=== PATIENT | female | born 1985 | race Caucasian/White ===

== ENCOUNTER → 2021-07-19 09:27 | Outpatient (BNVA) | payer OTHER, SELFPAY | PROVIDERS: PCP Physician Assistant Medical; Visit Provider Nurse Practitioner Family ==

== ENCOUNTER → 2021-10-16 08:53 | Outpatient (BNVA) | payer OTHER, SELFPAY | PROVIDERS: PCP Physician Assistant Medical; Visit Provider Nurse Practitioner Family | DX: F09 Unspecified mental disorder due to known physiological condition (principal) ==

== ENCOUNTER 2021-11-01 18:41 | Outpatient (REF) | payer OTHER, SELFPAY ==
--- NOTE | ~2021-11-01 | MR_ITS ---
EXAMINATION: MRI BRAIN WITHOUT CONTRAST CLINICAL INFORMATION: 36-year-old with self-reported brain fog of 1.5 years' duration. Abnormal reflexes. COMPARISON: None TECHNIQUE: Multiplanar multisequence MR imaging of the brain was done without IV contrast. FINDINGS: BRAIN VOLUME: Within normal limits. STRUCTURAL: No malformations. BRAIN AND MENINGES: DWI sequence demonstrates no restricted diffusion. Specifically, there is no evidence for acute or subacute cerebral ischemia. The brain is normal in morphology and signal intensity. Gradient refocused imaging demonstrates no evidence for hemorrhage, hemosiderin staining or abnormal mineral deposition. No extra-axial fluid collections, significant space-occupying process or mass effect are identified. Davila-white matter interface is preserved. VENTRICLES AND SUBARACHNOID SPACES: The ventricular system and subarachnoid spaces are within normal limits. There is no hydrocephalus. ORBITAL STRUCTURES: The visualized orbital structures are grossly unremarkable within the limitations of the study. Partially obscured by artifacts. VASCULAR: Signal voids are noted in the visualized major intracranial vessels. OSSEOUS STRUCTURES, SINUSES/MASTOIDS, EXTRACRANIAL SOFT TISSUES: There are multiple retention cysts in the maxillary sinuses bilaterally. Minor mucosal thickening in the ethmoid complex. Bone marrow signal intensity appears somewhat hypointense throughout the diploic space of the calvarium but is otherwise normal. Visualized extracranial soft tissue structures are unremarkable. MR/MR head/brain wo con IMPRESSION: 1. Unremarkable noncontrast MRI of the brain. No acute intracranial process. 2. Diffusely T1 hypointense marrow signal throughout the calvarial diploic space with normal marrow signal along the skull base and upper cervical spine, the significance of which is uncertain but could be a normal variant.
--- NOTE | ~2021-11-01 | MR_ITS ---
EXAMINATION: MR CERVICAL SPINE WITHOUT CONTRAST CLINICAL INFORMATION: 36-year-old with abnormal reflexes. COMPARISON: None TECHNIQUE: MRI of the cervical spine was obtained using routine sequences without contrast. FINDINGS: ALIGNMENT: The cervical spine is anatomically aligned. No spondylolisthesis or retrolisthesis. CRANIOCERVICAL JUNCTION/C1-C2 ARTICULATIONS: Intact and aligned. VISUALIZED INTRACRANIAL STRUCTURES: Within normal limits. 1.3 cm probable retention cyst in the right maxillary sinus. VERTEBRAL BODIES: Normal height. DISC SPACES AND ENDPLATES: The intervertebral disc space heights are well-maintained. No significant spondylosis. Minor disc desiccation at C2-C3, C5-C6 and C6-C7. Endplates appear intact. BONE MARROW: No significant marrow-replacing process or bone marrow edema. C2-C3: No disc herniation and no significant DJD, canal or neural foraminal stenosis. C3-C4: No disc herniation and no significant DJD, canal or neural foraminal stenosis. C4-C5: No disc herniation and no significant DJD, canal or neural foraminal stenosis. C5-C6: Tiny right paramedian disc protrusion with minimal indentation of the ventral thecal sac on the right without cord impingement or foraminal encroachment. Minor uncinate process spurring suspected on the right. No significant canal stenosis. Very slight narrowing of the right neural foramen without neural impingement. C6-C7: Tiny left subarticular disc protrusion without neural impingement. Minor uncinate process and facet spurring on the left noted with mild left-sided foraminal narrowing without neural impingement. No canal stenosis. C7-T1: No disc herniation, facet arthrosis, canal or neural foraminal stenosis. T1-T2: No disc herniation, DJD, canal or neural foraminal stenosis. SPINAL CORD: The cervical and visualized upper thoracic spinal cord is normal in morphology, caliber and signal intensity throughout. EXTRACRANIAL SOFT TISSUES: Grossly within normal limits within the limitations of the exam. MR/MR cervical spine wo con IMPRESSION: 1. Tiny right subarticular and left subarticular disc protrusions at C5-C6 and C6-C7 respectively without neural impingement or canal stenosis. 2. Minor bony productive changes at C5-C6 and C6-C7 with slight right-sided neural foraminal narrowing at C5-C6 and slight left-sided neural foraminal narrowing at C6-C7 without neural impingement.
== END 2021-11-01 18:42 | disposition home or self-care (01) ==
LOC: HO.MRI 18:41
PROVIDERS: Visit Provider Nurse Practitioner Family
DX: M54.2 Cervicalgia (principal); R29.2 Abnormal reflex; F09 Unspecified mental disorder due to known physiological condition
CPT/HCPCS: 70551; 72141

== ENCOUNTER 2022-03-14 18:48 | Outpatient (REF) | payer OTHER, SELFPAY ==
--- NOTE | ~2022-03-14 | MR_ITS ---
EXAMINATION: MR LUMBAR SPINE WITHOUT CONTRAST CLINICAL INFORMATION: Abnormal reflex. COMPARISON: No relevant prior imaging. TECHNIQUE: MRI of the lumbar spine was obtained using routine sequences without contrast. FINDINGS: There is transitional spinal anatomy at the lumbosacral junction with partial lumbarization of S1. There is a well-formed intervertebral disc at S1-S2. There is a pseudoarticulation between the right S1 and S2 transverse processes. Alignment is normal. Vertebral heights are preserved. No acute bone marrow signal changes. Intervertebral disc height and signal intensity is maintained at all levels. Annular contours are normal and there is no canal or neuroforaminal compromise. No mass effect on the traversing or foraminal nerve roots. The tip of the conus medullaris is located at L1-L2. No mass effect on the conus. Visualized distal cord signal intensity is normal. Limited visualization of the retroperitoneal anatomy reveals no abnormal finding. Psoas and paraspinal muscle groups are symmetric. MR/MR lumbar spine wo con IMPRESSION: There is transitional spinal anatomy at the lumbosacral junction with lumbarization of the S1 vertebral segment. There is a pseudoarticulation between the right S1 and S2 transverse processes. Otherwise normal lumbar spine MRI.
== END 2022-03-14 18:49 | disposition home or self-care (01) ==
LOC: HO.MRI 18:48
PROVIDERS: Visit Provider Nurse Practitioner Family
DX: M54.50 Low back pain, unspecified (principal); R29.2 Abnormal reflex
CPT/HCPCS: 72148

== ENCOUNTER 2022-03-21 12:37 | Outpatient (REF) | payer OTHER, SELFPAY ==
--- NOTE | 2022-03-21 12:41 | EEG_ITS ---
This is a 16-channel EEG with an EKG lead. The patient is reported awake during the tracing. Background EEG rhythm is 8 to 10 hertz 5 to 20 microvolt posteriorly, lower amplitude fast anteriorly. Photic stimulation does not produce any significant driving. Hyperventilation is not performed. Cardiac lead does not reveal any significant abnormality. No sharp wave spikes or paroxysmal tendencies noted. IMPRESSION: Unremarkable EEG. MD SAROJ Larson/MITCHEL / [phone]
== END 2022-03-21 12:38 | disposition home or self-care (01) ==
LOC: HO.NEURO 12:37
PROVIDERS: Visit Provider Nurse Practitioner Family
DX: R41.82 Altered mental status, unspecified (principal)
CPT/HCPCS: 95816

== ENCOUNTER → 2022-09-11 08:20 | Outpatient (BNVA) | payer OTHER, SELFPAY | PROVIDERS: PCP Internal Medicine; Visit Provider Nurse Practitioner Family | DX: M54.50 Low back pain, unspecified (principal); R29.2 Abnormal reflex ==

== ENCOUNTER 2023-03-13 09:19 | Outpatient (AMB) | payer OTHER, SELFPAY ==
--- NOTE | 2023-03-13 09:42 | A.OFFVIS_ITS ---
Intake Vital Signs 03/13/23 09:49 Height 5 ft 7 in Weight 175 lb 8 oz BMI 27.5 BP 110/82 Blood Pressure Location Rt brachial Position Sitting Pulse 84 Pulse Source Pulse Oximeter Pulse Oximetry (%) 98 Oxygen Delivery Method Room Air Intake Visit Reasons: 6m Follow up appt/confirmed Intake Note: Patient presents for 6 month follow up. patient states everything's the same nothings changed. Allergies No Known Allergies Allergy (Verified 03/13/23 09:53) Medication List - Last Reconciled 03/13/23 by VANESSA Cee escitalopram oxalate 10 mg PO DAILY lorazepam mg PO HPI HPI Comments History of Present Illness Details 38-yr-old female presents for f/u visit. Pt did undergo left shoulder surgery after her last viist, she notes she had significant increased pain, which eventually resolved after completing PT. Episodes of spacing out still occur sporadically. She is concerned about previous MRI head findings- Diffusely T1 hypointense marrow signal throughout the calvarial diploic space with normal marrow signal along the skull base and upper cervical spine. She has been having some left neck and lower back discomfort- non-radiating. Thinks she may have slept wrong. [facility] Surgical History (Updated 03/13/23 @ 09:54 by SUSAN Hart) H/O shoulder surgery History of nasal surgery History of tonsillectomy Family History Father Stroke Mother Cancer Dysplastic nevus Social History Alcohol intake: current Alcohol intake frequency: holidays/special occasions only Alcohol type: beer and hard liquor Patient Tobacco Use Status: Never used Tobacco Review of Systems Const All systems reviewed & are unremarkable except as noted in HPI and below Physical Exam Vital Signs: Last Vital Signs Pulse 84 03/13/23 09:49 BP 110/82 03/13/23 09:49 Pulse Ox 98 03/13/23 09:49 Oxygen Delivery Method Room Air 03/13/23 09:49 BMI result Body Mass Index 27.5 Const General: cooperative and no acute distress Orientation/consciousness: patient oriented x3 HEENT Head: Yes normocephalic Resp Effort & Inspection: normal respiratory effort and able to speak in complete sentences Neuro Other: Left paraspinal posterior cervical tightness and tenderness Left lower back paraspinal tightness General: patient oriented x3, gait normal and CN's II-XI intact bilaterally Cognition (Neuro): normal cognition Motor exam (neuro): 5/5 motor strength present throughout Deep tendon reflexes (DTR's): Right triceps reflex intensity grade: 2+, Left triceps reflex intensity grade: 2+, Rt Biceps (C5, C6): 2+, Left biceps reflex intensity grade: 3+, Right brachioradialis reflex intensity grade: 2+, Left brachioradialis reflex intensity grade: 2+, Right patellar reflex intensity grade: 2+ and Left patellar reflex intensity grade: 3+ Psych Appearance: grossly normal Mental Status: mental status grossly normal Speech and movement: Normal speech and movement present Affect: normal affect Attitude: cooperative Thought process: Normal thought process present Thought content: Normal thought content present Insight: Good insight present (Psych) Judgement: Good judgement present (Psych) Assessment & Plan Assessment & Plan (1) Abnormal MRI of head: Code(s): R93.0 - Abnormal findings on diagnostic imaging of skull and head, not elsewhere classified (2) Altered mental status: Code(s): R41.82 - Altered mental status, unspecified (3) Cervicalgia: Comment: More left sided. She has a h/o LUE tingling/aching pain. Can easily dislocate left shoulder. Code(s): M54.2 - Cervicalgia (4) Hyperreflexia: Comment: asymmetric patellar reflex- Code(s): R29.2 - Abnormal reflex (5) Low back pain: Code(s): M54.50 - Low back pain, unspecified Plan Pt advised to undergo f/u brain MRI to assess for any interval changes in diffuse T1 hypointensity in calvarial diploic space. Monitor spacing out episodes. EEG- normal. Increase ROM, stretches, exercise. f/u in 6 months or sooner prn Orders: Orders MR head/brain wo con Today R29.2 - Abnormal reflex, R41.82 - Altered mental status, unspecified, R93.0 - Abnormal findings on diagnostic imaging of skull and head, not elsewhere classified Coding Level of Care Code Est Pt Level 4 (52297) Diagnoses Abnormal MRI of head R93.0 Altered mental status R41.82 Cervicalgia M54.2 Hyperreflexia R29.2 Low back pain M54.50
[2023-03-13 09:49] VITALS: BP 110/82; PULSE 84; O2SAT 98; BMI 27.5
== END 2023-03-13 10:20 | disposition home or self-care (01) ==
PROVIDERS: Visit Provider Nurse Practitioner Family
DX: R93.0 Abnormal findings on diagnostic imaging of skull and head, not elsewhere classified (principal); R41.82 Altered mental status, unspecified; M54.2 Cervicalgia; R29.2 Abnormal reflex; M54.50 Low back pain, unspecified
CPT/HCPCS: 99214

== ENCOUNTER → 2023-03-13 09:19 | Outpatient (BNVA) | payer OTHER, SELFPAY | PROVIDERS: Visit Provider Nurse Practitioner Family | DX: M54.50 Low back pain, unspecified (principal); R29.2 Abnormal reflex ==

== ENCOUNTER 2023-04-08 17:22 | Outpatient (REF) | payer OTHER, SELFPAY ==
--- NOTE | ~2023-04-08 | MR_ITS ---
EXAMINATION: MRI BRAIN WITHOUT CONTRAST CLINICAL INFORMATION: Abnormal reflex; F/U on diffusely T1 hypointense marrow signal throughout the calvarial diploic space. COMPARISON: MRI brain dated 11/01/2021. TECHNIQUE: Multiplanar multisequence MR imaging of the brain was done without IV contrast. FINDINGS: BRAIN AND MENINGES: There is no evidence for acute or subacute cerebral ischemia. The brain is normal in morphology and signal intensity. Gradient refocused imaging demonstrates no evidence for hemorrhage, hemosiderin staining or abnormal mineral deposition. No extra-axial fluid collection, space-occupying process or mass effect are identified. Davila-white matter interface is preserved. VENTRICLES AND SUBARACHNOID SPACES: The ventricular system and subarachnoid spaces are within normal limits. There is no hydrocephalus. ORBITAL STRUCTURES: The visualized orbital structures are grossly unremarkable. VASCULAR: Flow voids within the major intracranial vessels are preserved. OSSEOUS STRUCTURES, SINUSES/MASTOIDS, EXTRACRANIAL SOFT TISSUES: Paranasal sinuses are clear. Diffusely T1 hypointense marrow signal throughout the calvarial diploic space is unchanged compared with prior exam. Visualized extracranial soft tissue structures are unremarkable. MR/MR head/brain wo con IMPRESSION: - No acute intracranial process. - Diffusely T1 hypointense marrow signal throughout the calvarial diploic space is unchanged compared with prior exam. The significance of this finding is uncertain.
== END 2023-04-08 17:23 | disposition home or self-care (01) ==
LOC: HO.MRI 17:22
PROVIDERS: PCP Internal Medicine; Visit Provider Nurse Practitioner Family
DX: R29.2 Abnormal reflex (principal); R41.82 Altered mental status, unspecified; R93.0 Abnormal findings on diagnostic imaging of skull and head, not elsewhere classified
CPT/HCPCS: 70551

== ENCOUNTER 2023-09-12 09:20 | Outpatient (AMB) | payer OTHER, SELFPAY ==
[2023-09-12 09:24] VITALS: BP 102/74; PULSE 79; O2SAT 99; BMI 27.9
--- NOTE | 2023-09-12 09:24 | A.OFFVIS_ITS ---
Vital Signs 09/12/23 09:24 Height 5 ft 7 in Weight 178 lb BMI 27.9 BP 102/74 Blood Pressure Location Rt brachial Position Sitting Pulse 79 Pulse Source Pulse Oximeter Pulse Oximetry (%) 99 Oxygen Delivery Method Room Air Intake Visit Reasons: 6 mnts f/u appt- Confirmed Intake Note: Patient presents for 6 month follow up. Patient presents for brain fog which has gotten better since she saw provider. Allergies No Known Allergies Allergy (Verified 09/12/23 09:26) Medication List - Last Reconciled 09/12/23 by VANESSA Cee escitalopram oxalate 10 mg PO DAILY lorazepam mg PO HPI Comments Details: 38-yr-old female presents for f/u visit. Pt denies any significant interval medical changes. Pt reports she is feeling overall well. Denies interval spacing out episodes. Pt denies easy bruising, bleeding. 04/08/23, MR/MR head/brain wo con IMPRESSION: - No acute intracranial process. - Diffusely T1 hypointense marrow signal throughout the calvarial diploic space is unchanged compared with prior exam. The significance of this finding is uncertain. PFSH Surgical History H/O shoulder surgery History of nasal surgery History of tonsillectomy Family History Father Stroke Mother Cancer Dysplastic nevus Social History Alcohol intake: current Alcohol intake frequency: holidays/special occasions only Alcohol type: beer and hard liquor Patient Tobacco Use Status: Never used Tobacco Physical Exam Vital Signs: Last Vital Signs Pulse 79 09/12/23 09:24 BP 102/74 09/12/23 09:24 Pulse Ox 99 09/12/23 09:24 Oxygen Delivery Method Room Air 09/12/23 09:24 BMI result Body Mass Index 27.9 Const General: cooperative and no acute distress Orientation/consciousness: patient oriented x3 Resp Effort & Inspection: normal respiratory effort and able to speak in complete sentences Neuro General: patient oriented x3 Cranial nerves: Yes CN's II-XII intact bilaterally Cognition (Neuro): normal cognition Psych Appearance: grossly normal Mental Status: mental status grossly normal Speech and movement: Normal speech and movement present Affect: normal affect Attitude: cooperative Assessment & Plan Assessment & Plan (1) Abnormal MRI of head: Code(s): R93.0 - Abnormal findings on diagnostic imaging of skull and head, not elsewhere classified Category: Medical (2) Cognitive dysfunction: Comment: ? atypical migraine w/out WARD, ? epilepsy Code(s): F09 - Unspecified mental disorder due to known physiological condition Category: Medical (3) Cervicalgia: Comment: More left sided. She has a h/o LUE tingling/aching pain. Can easily dislocate left shoulder. Code(s): M54.2 - Cervicalgia Category: Medical Plan Reviewed brain MRI- No intevrla changes. Stable diffusely T1 hypointense marrow signal throughout the calvarial diploic space. Will check CBC w/ diff and labs. Monitor spacing out episodes. Previous EEG- normal. Continue ROM, stretches, exercise. f/u in 12 months or sooner prn. Orders: Orders Complete Blood Count Auto Diff 09/12/23 D75.9 - Disease of blood and blood- forming organs, unspecified, R93.0 - Abnormal findings on diagnostic imaging of skull and head, not elsewhere classified, F09 - Unspecified mental disorder due to known physiological condition, R29.2 - Abnormal reflex Calcium, Ionized 09/12/23 R93.0 - Abnormal findings on diagnostic imaging of skull and head, not elsewhere classified, F09 - Unspecified mental disorder due to known physiological condition, R29.2 - Abnormal reflex Comprehensive Met. Panel 09/12/23 R93.0 - Abnormal findings on diagnostic imaging of skull and head, not elsewhere classified, F09 - Unspecified mental disorder due to known physiological condition, R29.2 - Abnormal reflex Coding Level of Care Code Est Pt Level 3 (02153) Diagnoses Abnormal MRI of head R93.0 Cognitive dysfunction F09 Cervicalgia M54.2
== END 2023-09-12 10:04 | disposition home or self-care (01) ==
PROVIDERS: PCP Internal Medicine; Visit Provider Nurse Practitioner Family
DX: R93.0 Abnormal findings on diagnostic imaging of skull and head, not elsewhere classified (principal); R41.89 Other symptoms and signs involving cognitive functions and awareness; M54.2 Cervicalgia
CPT/HCPCS: 99213

== ENCOUNTER → 2023-09-12 09:20 | Outpatient (BNVA) | payer OTHER, SELFPAY | PROVIDERS: PCP Internal Medicine; Visit Provider Nurse Practitioner Family ==

== ENCOUNTER 2023-09-12 10:08 | Outpatient (REF) | payer OTHER, SELFPAY ==
[2023-09-12 14:27] LABS: MANUAL DIFF FLAG NO
[2023-09-12 14:31] LABS: Basophils Percent Auto 0.5 % (0-2); Eosinophils Absolute Auto 0.1 X10*3/uL (0.0-0.4); Eosinophils Percent Auto 1.4 % (0-4); Hematocrit 41.3 % (37.0-47.0); Imm Gran Abs Auto 0.02 X10*3/uL (0.00-0.03); Imm Gran Pct Auto 0.3 % (0.0-0.4); Lymphocytes Absolute Auto 2.2 X10*3/uL (1.2-4.9); Lymphocytes Percent Auto 32.9 % (20-40); Mean Corpuscular HGB Conc 33.9 g/dl (31.0-35.0); Mean Corpuscular Hemoglobin 31.6 pg (27.0-33.0); Mean Corpuscular Volume 93.2 fL (80.0-98.0); Mean Platelet Volume 10.6 fL (9.4-12.3); Monocytes Absolute Auto 0.6 X10*3/uL (0.1-1.2); Monocytes Percent Auto 8.4 % (2-11); Neutrophils Absolute Auto 3.8 x10*3/uL (2.0-8.3); Neutrophils Percent Auto 56.5 % (45-73); Platelet Count 247 X10*3/uL (160-400); Red Blood Count 4.43 X10*6/uL (4.20-5.50); Red Cell Distribution Width 11.8 % (11.0-16.0); White Blood Count 6.6 X10*3/uL (4.8-10.8)
[2023-09-12 15:09] LABS: Alanine Aminotransferase 8 U/L (0-31); Albumin Level 4.3 g/dL (3.5-5.0); Alkaline Phosphatase 66 U/L (39-117); Anion Gap 13 (12-20); Aspartate Amino Transferase 20 U/L (5-31); Bilirubin Total 0.3 mg/dL (0.0-1.0); Blood Urea Nitrogen 10 mg/dL (9-16); Calcium 9.6 mg/dL (8.4-10.2); Carbon Dioxide 27 mmol/L (22-29); Chloride 106 mmol/L (96-108); Estimated Glomerular Filt Rate > 60; Glucose Random 71 mg/dL (60-115); Potassium 4.6 mmol/L (3.3-5.1); Sodium 141 mmol/L (135-145); Total Protein 7.5 g/dL (6.5-8.0)
[2023-09-16 14:33] LABS: Calcium, Ionized 5.4 mg/dL (4.7-5.5)
== END 2023-09-12 10:09 | disposition home or self-care (01) ==
LOC: HO.HKASLDS 10:08
PROVIDERS: Visit Provider Nurse Practitioner Family
DX: D75.9 Disease of blood and blood-forming organs, unspecified (principal); F09 Unspecified mental disorder due to known physiological condition; R29.2 Abnormal reflex; R93.0 Abnormal findings on diagnostic imaging of skull and head, not elsewhere classified
CPT/HCPCS: 36415; 80053; 82330; 85025

== ENCOUNTER 2024-09-09 09:15 | Outpatient (AMB) | payer OTHER, SELFPAY ==
[2024-09-09 09:30] VITALS: BP 110/80; PULSE 81; O2SAT 99; BMI 28.0
--- NOTE | 2024-09-09 09:30 | MHC.OFFVIS ---
Vital Signs 09/09/24 09:30 Height 5 ft 7 in Weight 179 lb BMI 28.0 BP 110/80 Blood Pressure Location Lt brachial Position Sitting Pulse 81 Pulse Source Pulse Oximeter Pulse Oximetry (%) 99 Oxygen Delivery Method Room Air Intake Visit Reasons: 1 yr follow up Intake Note: Patient presents 1 year follow up for Cognitive. Accompanied by: Self / Same As Patient Allergies No Known Allergies Allergy (Verified 09/09/24 09:33) Medication List - Last Reconciled 09/09/24 by VANESSA Cee escitalopram oxalate 10 mg PO DAILY lorazepam mg PO HPI Comments Details: 39-yr-old female presents for f/u visit. Pt denies any significant interval medical changes. Interal August 2023 CBC and CMP- WNL. Pt reports she is feeling overall well. Denies interval spacing out episodes. Her neck can be tight- she thinks attributed to uptick in work- thus sitting more at her desk. She does have a standing desk- uses a foot peddler and has a standing treadmill- but cannot stand on it for too long as it bothers her feet if standing on it w/o walking. 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 Pt denies easy bruising, bleeding. 04/08/23, MR/MR head/brain wo con IMPRESSION: - No acute intracranial process. - Diffusely T1 hypointense marrow signal throughout the calvarial diploic space is unchanged compared with prior exam. The significance of this finding is uncertain. PFSH Surgical History H/O shoulder surgery History of nasal surgery History of tonsillectomy Family History Father Stroke Mother Cancer Dysplastic nevus Social History Alcohol intake: current Alcohol intake frequency: holidays/special occasions only Alcohol type: beer and hard liquor Patient Tobacco Use Status: Never used Tobacco Physical Exam Vital Signs: Last Vital Signs Pulse 81 09/09/24 09:30 BP 110/80 09/09/24 09:30 Pulse Ox 99 09/09/24 09:30 Oxygen Delivery Method Room Air 09/09/24 09:30 BMI result Body Mass Index 28.0 Const General: cooperative and no acute distress Orientation/consciousness: patient oriented x3 Resp Effort & Inspection: normal respiratory effort and able to speak in complete sentences Neuro General: patient oriented x3 Cranial nerves: Yes CN's II-XII intact bilaterally Cognition (Neuro): normal cognition Deep tendon reflexes (DTR's): Right triceps reflex intensity grade: 2+, Left triceps reflex intensity grade: 2+, Rt Biceps (C5, C6): 2+, Left biceps reflex intensity grade: 2+, Right brachioradialis reflex intensity grade: 2+, Left brachioradialis reflex intensity grade: 2+, Right patellar reflex intensity grade: 2+, Left patellar reflex intensity grade: 3+, Right ankle reflex intensity grade: 2+ and Left ankle reflex intensity grade: 3+ Psych Appearance: grossly normal Mental Status: mental status grossly normal Speech and movement: Normal speech and movement present Affect: normal affect Attitude: cooperative Assessment & Plan Assessment & Plan (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 atypical migraine w/out WARD, low suspicion for epilepsy Code(s): F09 - Unspecified mental disorder due to known physiological condition Category: Medical (4) Cervicalgia: Comment: More left sided. She has a h/o LUE tingling/aching pain. Can easily dislocate left shoulder. Code(s): M54.2 - Cervicalgia Category: Medical Plan Reviewed interval CBC/CMP- WNL. Check CBC, retic count, ESR, and CMP. Plan to schedule f/u brain MRI w/wo in Nov (2 yr f/u from previosu) to assess stability of T1 hypointense marrow signal throughout the calvarial diploic space. Monitor spacing out episodes. Previous EEG- normal. Continue ROM, stretches, exercise. Will follow-up upon review of above and patient to follow-up in clinic in 6-8 months or sooner prn. Orders: Orders Complete Blood Count Auto Diff Today D75.9 - Disease of blood and blood-forming organs, unspecified Comprehensive Met. Panel Today D75.9 - Disease of blood and blood-forming organs, unspecified Erythrocyte Sedimentation Rate Today D75.9 - Disease of blood and blood-forming organs, unspecified MR head/brain wo/w con Today D75.9 - Disease of blood and blood-forming organs, unspecified, R93.0 - Abnormal findings on diagnostic imaging of skull and head, not elsewhere classified Coding Level of Care Code Est Pt Level 3 (56913) Diagnoses Bone marrow disorder D75.9 Abnormal MRI of head R93.0 Cognitive dysfunction F09 Cervicalgia M54.2
--- OUTSIDE RECORDS SUMMARY | 2024-09-09 10:05 | XMS_ITS | Encounter Summary ---
Author Organization [facility] Address [address] [place] [address] Care Team Providers Care [employer] Manager Name Role Phone Lili Herrera MD Primary Care Prov ider Encounter Details Date Type Department Care Team (Late Contact Info) Description 05/26/2024 Lab Requisition [facility] [address] [facility] [place] [id number] Gigi Alcaraz MD [address] [id number] Family history of colon polyps, unspecified; Encounter for screening for malignant neoplasm of colon Social History Tobacco Use Types Packs/Day Years Used Date Smoking Tobacco: Never Smokeless Tobacco: Never Alcohol Use Standard Drinks/Week Comments Yes 0 (1 standard drink = 0.6 oz pur e alcohol) Comments Unknown Sex and Gender Information Value Date Recorded Sex Assigned at Female 06/14/2024 10:52 PM EST Legal Sex Female 2:17 PM EST Gender Identity Not on file Sexual Orientation Straight 06/14/2024 10 :52 PM EST documented as of this encounter Plan of Treatment Upcoming Encounters Date Type Department Care Team ([facility] Contact Info) Description 01/01/2025 11:00 AM EDT Office Visit Adult Medicine - [facility] [address] [place] [id number] Lili Herrera MD [address] [place] [address] 02/20/2025 3:30 PM EDT Appointment Radiology Department - [address] [phone] documented as of this encounter Procedures Procedure Name Priority Date/Time Associated Diagnosis Comments TISSUE EXAM Routine 05/25/2024 Family history of colon polyps, unspecified Encounter for screening for malignant neoplasm of colon documented in this encounter Results * Tissue Exam (05/25/2024) Final Diagnosis Colon polyp at 20 cm: Benign colonic mucosa with prominent lymphoid aggregate No adenomatous change identified on deeper levels 05/29/2024 8:43 AM [facility] Clinical Information Colon cancer screening in patient at increased risk: Family history of 1st-degree relative with colon polyps before age 60 years Finding: polyp 05/29/2024 8:43 AM [facility] Gross Description A. Colon, polyp at 20 cm: Labeled polyp at 20 cm . Received in formalin are two irregular davila mucosal tissue fragments, measuring 0.1 cm and 0.3 cm in greatest dimension, which are wrapped in paper and submitted in toto in one cassette, two pieces, multiple levels on one slide. NAOMI 05/29/2024 8:43 AM [facility] Disclaimer Unless otherwise specified, all tissue is 10% NB formalin fixed and paraffin embedded. 05/29/2024 8:43 AM [facility] Tissue Colon structure / Unknown 05/25/2024 05/26/2024 11:04 AM EST us Gigi Alcaraz MD LAB PATHOLOGY ORDERABLES Inga lenz Result [facility] [address] [place] [address], documented in this encounter Visit Diagnoses Diagnosis Family history of colon polyps, unspecified Encounter for screening for malignant neoplasm of colon documented in this encounter Care Teams [employer] Manager Relationship Specialty Start Date End Date Lili Herrera MD [address] [place] [id number] PCP - General Internal Medicine 04/25/20 documented as of this encounter
--- OUTSIDE RECORDS SUMMARY | 2024-09-09 10:05 | XMS_ITS | Clinical Summary ---
Author Organization [facility] [address] [facility] Address [address] [place] [address] Phone Care Team Providers Care Ad Trafficker Name Role Phone Lili Herrera MD Primary Care Prov ider Allergies No known active allergies Medications LORazepam (ATIVAN) 0.5 mg tablet Take 0.5-1 Tablets by mouth every 6 hours as needed for Anxiety. 4 Active ruxolitinib (Opzelura) 1.5 % cream Apply topically. Active escitalopram (LEXAPRO) 10 mg tabletIndicatio ns:Generalized anxiety disorder TAKE 1 TABLET BY MOUTH EVERY DAY 90 tablet 1 5 Active hydrocortisone (ANUSOL-HC) 2.5 % rectal cream APPLY A SMALL AMOUNT VIA APPLICATOR ONCE A DAY NEEDED 4 Active Active Problems Problem Noted Date Diagnosed Date At high risk for breast cancer 09/02/2024 Overview (09/02/2024): Empower test results: neg w/ T/C score 28.3% Recommended mammo and breast MRI every year Generalized anxiety disorder 12/11/2022 PSVT (paroxysmal supraventri cular tachycardia) (CMS/HCC V24) 07/01/2020 Overview (04/17/2024): On the holter - Dr. Herrera Palpitations 06/03/2020 Overview (04/17/2024): Sinus tachy on portion of Holter Monitro 04/2020. HR 54-132. Referral to cardiology Last Assessment & Plan: Unremarkable 14-day looping monitor. Symptomatically improved after starting Lexapro. No further work-up at this time. She will follow-up as needed. Vitamin D deficiency 05/05/2020 Anal fissure 03/14/2010 Overview (04/17/2024): Identified on exam 03/14/2010. IBS (irritable bowel syndrome) 03/14/2010 Overview (04/17/2024): Childhood onset with episodes of vomiting and/or diarrhea precipitated by increased stress. Assessment & Plan (06/08/2024 9:52 AM EST): Improved since starting miralax and fiber supplement daily, can continue as directed. Reviewed lifestyle and diet modifications that may also help promote bowel movements -consider daily prune juice as alternative to miralax -or consider increasing fiber supplement to 4 teaspoons daily and reduce miralax use to as needed Patient interested in food allergy testing, referral to allergy required, she is seeing PCP soon and will defer to their office. Will order celiac panel today given her concerns. We also discussed elimination diet and food groups that can worsen constipation/IBS. Orders: Tissue transglutaminase, IgA; Future Endomysial antibody, IgA; Future Encounters Date Type Department Care Team Description 08/19/2024 9:45 AM EDT Office Visit Obstetrics and Gynecology - [address] [phone] Miguel Angel Day CNM Women's annual routine gynecological examination (Primary Dx); Encounter for screening mammogram for malignant neoplasm of breast; Family history of breast cancer; Encounter for nonprocreative genetic counseling; Screening for genetic disease carrier status 07/01/2024 11:00 AM EST Office Visit Adult Medicine - [address] [phone] Lili Villeda MD Generalized anxiety disorder (Primary Dx); Irritable bowel syndrome, unspecified type 06/11/2024 Telephone Gastroenterology - [address] [facility] [address] [place] [address] Bradley Desai MA Results from Last 3 Months Immunizations Name Administration Dates Next Due HPV, Quadrivalent 10/12/2008,06/14/2008,04/13/20 08 Influenza Quadravalent, MDCK , 0.5ml, preservative free (Flucelvax) 6mo and older 03/13/2022,03/13/2018 Influenza Quadravalent, MDCK , 0.5ml, with preservative (Flucelvax) 6mo and older 03/27/2017 Influenza trivalent, 0.5mL, preservative free (Fluarix; FluLaval; Fluzone) ages 6mo and older (Afluria) 3 years and older 03/05/2016,04/12/2015,03/01/2014 Influenza, Unspecified 03/13/2018 Meningococcal Polysaccharide 12/04/2002 Moderna SARS-CoV-2 COVID-19, mRNA, LNP-S, preservative free 04/19/2021 PPD Test 12/13/2000 Tdap Tetanus diptheria acell ular pertussis (Boostrix; Adacel) 7yo and older 10/05/2023,10/03/2016,04/28/2014,09/02 Surgical History Surgery Date Site/Laterality Comments TONSILLECTOMY PROCEDURE: HISTORICAL TONSILLECTOMY NASAL SEPTUM SURGERY PROCEDURE: MS SEPTOPLASTY/SUBMUCOUS RESECJ W/WO CARTILAGE GRF FLEXIBLE SIGMOIDOSCOPY 10/09/2011 PROCEDURE: MS SIGMOIDOSCOPY FLX DX W/COLLJ SPEC BR/WA IF PFRMD; COMMENT: normal to 30 cm MOLE REMOVAL PROCEDURE: HISTORICAL MOLE (REMOVAL OF); COMMENT: Dysplastic nevus 02/11 right buttock (moderat atypia) 02/10 left thigh; anterior (mild atypia) & left thigh; posterior (moderate atypia) 10/10 right thigh (severe atypia) 06/12 left chest wall (moderate atypia) 10/09 left thigh (moderate atypia) 12/08 le COLONOSCOPY 05/25/2024 recall 5 yrs Medical History Medical History Date Comments IBS (irritable bowel syndrome) 03/14/2010 D X:IBS (irritable bowel syndrome) History of dysplastic nevus 12/21/2014 DX:H istory of dysplastic nevus; COMMENT: Dysplastic nevus 02/11 right buttock (moderat atypia) 02/10 left thigh; anterior (mild atypia) & left thigh; posterior (moderate atypia) 10/10 right thigh (severe atypia) 06/12 left chest wall (moderate atypia) 10/09 left thigh (moderate atypia) 12/08 left thigh (severe atypia focally suspicious of malignant melanoma in situ) Vitamin D deficiency 05/05/2020 DX:Vitamin D deficiency Palpitations 06/03/2020 DX:Palpitations; COMMENT: Sinus tachy on portion of Holter Monitro 04/2020. HR 54-132. Referral to cardiology Generalized anxiety disorder 12/11/2022 PONV (postoperative nausea a nd vomiting) Colon polyp At high risk for breast cancer 09/02/2024 E mpower test results: neg w/ T/C score 28.3%Recommended mammo and breast MRI every year Family History Medical History Relation Name Comments Stroke Father My dad Diabetes Maternal Grandfather Moms father Stroke Maternal Grandfather Moms father diabete s, vascular disease with bilateral BKA Other: oral cancer Maternal Grandmother Breast cancer Mother BRCA negative Dysplastic Nevus Mother Stroke Paternal Grandfather Dads father Dementia Paternal Grandmother Colon polyps Sister Youngest sister Colon cancer Neg Hx Ovarian cancer Neg Hx Pancreatic cancer Neg Hx Uterine cancer Neg Hx Relation Name Status Comments Father My dad Alive Maternal Grandfather Moms father Maternal Grandmother Mother Alive Paternal Grandfather Dads father Paternal Grandmother Sister Youngest sister Social History Tobacco Use Types Packs/Day Years Used Date Smoking Tobacco: Never Smokeless Tobacco: Never Tobacco Cessation:Counseling Given: Not Answered Alcohol Use Standard Drinks/Week Comments Yes 0 (1 standard drink = 0.6 oz pur e alcohol) SOCIAL Housing Instability Answer Date Recorde d Are you worried that in the next 2 months you may not have stable housing? No 08/12/2024 Food Access & Nutrition Answer Date Rec orded Do you have access to a vari ety of food including fruits and vegetables? Yes 08/12/2024 Access to Healthcare Answer Date Record ed Within the last 3 months, ho w many times did you visit the emergency department for your medical care? 0 08/12/2024 Health Literacy Answer Date Recorded How often do you need to hav e someone help you when you read instructions, pamphlets, or other written material from your doctor or pharmacy? Never 08/12/2024 Caregiver: How often do you need to have someone help you when you read instructions, pamphlets, or other written material from your doctor or pharmacy? Not on file 08/12/2024 Financial Risk Answer Date Recorded How hard is it for you to pa y for the very basics like food, housing, medical care, and air conditioning / heating? Not very hard 08/12/2024 Transportation Answer Date Recorded Has the lack of transportati on kept you from meetings, work, or from getting things needed for daily living? No Has the lack of transportati on kept you from medical appointments or from getting medications? No 08/12/2024 Social Isolation Answer Date Recorded How often do you feel lonely or isolated from th ose around you? Never 08/12/2024 Food Risk Answer Date Recorded Within the past 12 months we worried whether our food would run out before we got money to buy more. Never true 08/12/2024 Within the past 12 months th e food we bought just didn't last and we didn't have money to get more. Never true 08/12/2024 Dependent Care Answer Date Recorded Do you need help finding or paying for care for your loved ones. For example, childcare worker or elderly care for an older adult? No 08/12/2024 Education Answer Date Recorded Do you think completing more education or training, like finishing a GED, going to college, or learning a trade, would be helpful for you? N/A 08/12/2024 Employment and Income Answer Date Recor ded During the last four weeks, have you been actively looking for work? No 08/12/2024 Living Situation Answer Date Recorded What is your living situation? 0 08/12/2024 Comments No Sex and Gender Information Value Date Recorded Sex Assigned at Female 06/14/2024 10:52 PM EST Legal Sex Female 2:17 PM EST Gender Identity Not on file Sexual Orientation Straight 06/14/2024 10 :52 PM EST Obstetrics History Last Filed Vital Signs Vital Sign Reading Time Taken Comments Blood Pressure 121/75 08/19/2024 9:40 AM EDT Pulse 68 08/19/2024 9:40 AM EDT Temperature 37.1 ??C (98.7 ??F) 07/01/2024 10:[address] Respiratory Rate - - Oxygen Saturation - - Inhaled Oxygen Concentration - - Weight 80.7 kg (178 lb) 08/19/2024 9:40 AM EDT Height 170.2 cm (5' 7 ) 06/08/2024 9:15 AM EST Body Mass Index 27.88 06/08/2024 9:15 AM EST Plan of Treatment Upcoming Encounters Date Type Department Care Team (Late st Contact Info) Description 01/01/2025 11:00 AM EDT Office Visit Adult Medicine - [address] [place] [phone] Lili Herrera MD [address] [place] [address] 02/20/2025 3:30 PM EDT Appointment Radiology Department - [address] [phone] Health Maintenance Due Date Last Done Comments Hepatitis B Vaccines (1 of 3 - 19+ 3-dose series) 02/10/2004 Hepatitis C Screening 05/05/2022 COVID-19 Vaccine (2023- season) 2024 04/19/2021, 10/13/2020, 09/15/2020 Influenza Vaccine (Season Ended) 2025 03/13/2022, 02/14/2021, 02/21/2020, Additional history exists Depression Screening 08/12/2025 08/12/2024 Social Influencers of Health Screening 08/12/2025 08/12/2024 Cervical Cancer Screening: HPV 11/14/2025 11/14/2020 Cholesterol Screening (Lipid Panel) 12/29/2028 12/30/2023, 12/30/2023 DTaP,Tdap,and Td Vaccines (5 - Td or Tdap) 10/04/2033 10/05/2023, 10/03/2016, 04/28/2014, Additional history exists Meningococcal ACWY Vaccine Aged Out 12/04/2002 N o longer eligible based on patient's age to complete this topic HPV Vaccines Completed 10/12/2008, 05/27, 04/13/2008 HIV Screening Completed 04/06/2016 HIB Vaccines Aged Out No longer eligi ble based on patient's age to complete this topic Hepatitis A Vaccines Aged Out No long er eligible based on patient's age to complete this topic IPV Vaccines Aged Out No longer eligi ble based on patient's age to complete this topic MMR Vaccines Aged Out No longer eligi ble based on patient's age to complete this topic Meningococcal B Vaccine Aged Out No l onger eligible based on patient's age to complete this topic Pneumococcal Vaccine: Pediatrics (0 to 5 Years) and At-Risk Patients (6 to 64 Years) Aged Out No longer eligible based on patient's age to complete this topic RSV Immunization Patients Under 20 months Aged Out No longer eligible based on patient's age to complete this topic Varicella Vaccines Aged Out No longer eligible based on patient's age to complete this topic Procedures Procedure Name Priority Date/Time Associated Diagnosis Comments EMPOWER CUSTOM Routine 09/02/2024 2:26 PM EDT VENIPUNCTURE CHARGE Routine 08/19/2024 1 0:26 AM EDT Family history of malignant neoplasm of breast LIPID PANEL Routine 12/30/2023 HPV Routine 11/14/2020 HIV SCREENING Routine 04/06/2016 from Last 3 Months or Most Recently Relevant to Health Maintenance Results * Social DJ Custom (09/02/2024 2:26 PM EDT) Blood Venous blood specimen / Unknown Miguel Angel [facility] ORD ERABLES Final Result * Venipuncture charge (08/19/2024 10:26 AM EDT) Extra Tube Hold for add-ons. 08/19/2024 12:02 PM EDT [facility]) Comment:Auto resulted. Blood Venous blood specimen / Unknown Venipuncture / Unknown 08/19/2024 10:26 AM EDT 08/19/2024 10:28 AM EDT Miguel Angel [facility] BLOOD ORDERABLES Final Re sult [facility] [place], * (ABNORMAL) Lipid panel (12/30/2023) LDL/HDL Ratio 4 0 - 4 Triglycerides 182(A) 0 - 150 mg/dL Cholesterol 231(A) 0 - 200 mg/dL HDL 58 >=40 mg/dL LDL Cholesterol 137(A) 0 - 100 mg/dL Blood Venous blood specimen / Unknown Historical Provider LAB BLOOD ORDERABLES Inga l Result * Cervical Cancer Screening: HPV (11/14/2020) Pathologist [facility] Cervical Cancer Screening: HPV negative, abstracted Historical Provider HEALTH MAINTENANCE Final Result * HIV Screening (04/06/2016) Pathologist [facility] HIV Screening abstracted Historical Provider HEALTH MAINTENANCE Final Result from Last 3 Months or Most Recently Relevant to Health Maintenance Insurance [facility] Care Teams Ad Trafficker Relationship Specialty Start Date End Date Lili Herrera MD [address] [place] [phone] PCP - General Internal Medicine 04/25/20
--- OUTSIDE RECORDS SUMMARY | 2024-09-09 10:05 | XMS_ITS | Encounter Summary ---
Author Organization [facility] Address [address] [place] [address] Care Team Providers Care Parachute Accessories Attacher Name Role Phone Lili Herrera MD Primary Care Prov ider Encounter Details Date Type Department Care Team (Latest Contact Info) Description 03/12/2024 12:06 PM EDT Hospital Encounter TH HISTORIC ENCOUNTERS EASTERN CONVERSION ONLY Gigi Alcaraz MD [address] [place] [phone] Irritable bowel syndrome, unspecified Social History Tobacco Use Types Packs/Day Years [...] care for your loved ones. For example, early childhood worker or elderly care for an older [...] 11:00 AM EDT Office Visit Adult Medicine [facility] [address] [place] [phone] Lili Herrera MD [address] [place] [address] 02/20/2025 3:30 PM EDT Appointment Radiology Department [address] [phone] documented as of this encounter Procedures Procedure Name Priority Date/Time Associated Diagnosis Comments DR ABDOMEN FLAT AND ERECT Routine 03/16/2024 10:04 AM EDT Irritable bowel syndrome, unspecified documented in this encounter Results * DR ABDOMEN FLAT AND ERECT (03/16/2024 10:04 AM EDT) Anatomical Region Laterality Modality Radiographic Carole ging 03/12/2024 12:1 1 PM EDT Narrative 03/16/2024 10:04 AM EDT [facility] Diagnostic Imaging Department [address] [place] [id number] Patient: ??NATALIE KLEIN ?/Age/Sex: 1985 - 39 - F Unit#: ??[id number] ? Location/Status: ??SPDIGEN/REG CLI ? Mnemonic/Ordering Site: ??ABDOFNANCY/SPDI Ordering Physician: ??GIGI ALCARAZ MD DR Abdomen Flat and Erect - 03/12/24 - 1218 Report Status:Signed EXAMINATION: Abdomen flat and upright views. Clinical indications: Chronic abdominal discomfort. History of IBS. COMPARISON: Upper GI air contrast study 04/10/2007. FINDINGS: There is scattered stool and gas seen in the colon without distention. There is no air-fluid levels or free air. No organomegaly. No radiopaque calculi. No gross bony abnormality. IMPRESSION: Mild constipation. Dictating Physician: ??EDYTA OGDEN Electronically Signed by: ??EDYTA OGDEN Dic Date/Time: ??03/16/24 1003 Sign date/Time: ??03/16/24 1004 Procedure Note Edyta Ogden MD - 03/24/2024 [facility] Diagnostic Imaging Department [address] [place] [address] Patient: NATALIE KLEIN D.O.B./Age/Sex: 1985 - 39 - F Unit#: [id number] Location/Status: SPDIGEN/REG CLI Mnemonic/Ordering Site: [facility] Ordering Physician: GIGI ALCARAZ MD DR Abdomen Flat and Erect - 03/12/24 - 1218 Report Status:Signed EXAMINATION: Abdomen flat and upright views. Clinical indications: Chronic abdominal discomfort. History of IBS. COMPARISON: Upper GI air contrast study 04/10/2007. FINDINGS: There is scattered stool and gas seen in the colon without distention. There is no air-fluid levels or free air. No organomegaly.No radiopaque calculi. No gross bony abnormality. IMPRESSION: Mild constipation. Dictating Physician: EDYTA OGDEN Electronically Signed by: EDYTA OGDEN Dic Date/Time: 03/16/24 1003 Sign date/Time: 03/16/24 1004 us Gigi Alcaraz MD IMG XR PROCEDURES Final Resul t documented in this encounter Visit Diagnoses Diagnosis Irritable bowel syndrome, unspecified documented in this encounter Care Teams Parachute Accessories Attacher Relationship Specialty Start Date End Date Lili Herrera MD [address] [place] [phone] PCP - General Internal Medicine 04/25/20 documented as of this encounter
== END 2024-09-09 10:12 | disposition home or self-care (01) ==
LOC: HO.HSMS 09:15
PROVIDERS: PCP Internal Medicine; Visit Provider Nurse Practitioner Family
DX: D75.9 Disease of blood and blood-forming organs, unspecified (principal); R93.0 Abnormal findings on diagnostic imaging of skull and head, not elsewhere classified; R41.89 Other symptoms and signs involving cognitive functions and awareness; M54.2 Cervicalgia
CPT/HCPCS: 99213

== ENCOUNTER 2024-09-12 07:19 | Outpatient (REF) | payer OTHER, SELFPAY ==
[2024-09-12 07:31] LABS: MANUAL DIFF FLAG NO
[2024-09-12 07:35] LABS: Basophils Percent Auto 0.7 % (0-2); Eosinophils Absolute Auto 0.1 X10*3/uL (0.0-0.4); Eosinophils Percent Auto 2.2 % (0-4); Hemoglobin 12.9 g/dl (12.0-16.0); Imm Gran Abs Auto 0.02 X10*3/uL (0.00-0.03); Imm Gran Pct Auto 0.3 % (0.0-0.4); Lymphocytes Percent Auto 33.6 % (20-40); Mean Corpuscular HGB Conc 33.9 g/dl (31.0-35.0); Mean Corpuscular Hemoglobin 31.8 pg (27.0-33.0); Mean Corpuscular Volume 93.6 fL (80.0-98.0); Mean Platelet Volume 9.9 fL (9.4-12.3); Monocytes Absolute Auto 0.5 X10*3/uL (0.1-1.2); Monocytes Percent Auto 7.9 % (2-11); Neutrophils Absolute Auto 3.2 x10*3/uL (2.0-8.3); Neutrophils Percent Auto 55.3 % (45-73); Platelet Count 221 X10*3/uL (160-400); Red Blood Count 4.06 X10*6/uL (4.20-5.50); Red Cell Distribution Width 11.9 % (11.0-16.0); White Blood Count 5.8 X10*3/uL (4.8-10.8)
[2024-09-12 08:10] LABS: Alanine Aminotransferase 7 U/L (0-31); Albumin Level 4.2 g/dL (3.5-5.0); Alkaline Phosphatase 68 U/L (39-117); Aspartate Amino Transferase 16 U/L (5-31); Bilirubin Total 0.4 mg/dL (0.0-1.0); Blood Urea Nitrogen 13 mg/dL (9-16); Calcium 9.3 mg/dL (8.4-10.2); Estimated Glomerular Filt Rate > 60; Glucose Random 92 mg/dL (60-115); Total Protein 6.9 g/dL (6.5-8.0)
[2024-09-12 08:16] LABS: Erythrocyte Sedimentation Rate 7 MM/HR (0-20)
[2024-09-12 08:18] LABS: Anion Gap 11 (12-20); Carbon Dioxide 26 mmol/L (22-29); Chloride 110 mmol/L (96-108); Potassium 4.6 mmol/L (3.3-5.1); Sodium 142 mmol/L (135-145)
== END 2024-09-12 07:20 | disposition home or self-care (01) ==
LOC: HO.LAB 07:19
PROVIDERS: PCP Internal Medicine; Visit Provider Nurse Practitioner Family
DX: D75.9 Disease of blood and blood-forming organs, unspecified (principal)
CPT/HCPCS: 36415; 80053; 85025; 85652

== ENCOUNTER → 2025-04-12 15:42 | Outpatient (BNV) | payer OTHER, SELFPAY | PROVIDERS: PCP Internal Medicine; Visit Provider Radiology Diagnostic Radiology | DX: R93.0 Abnormal findings on diagnostic imaging of skull and head, not elsewhere classified (principal) | CPT/HCPCS: 70553 ==

== ENCOUNTER 2025-04-12 16:05 | Outpatient (REF) | payer OTHER, SELFPAY ==
--- NOTE | ~2025-04-12 | MR_ITS ---
EXAMINATION: MR BRAIN WITHOUT AND WITH CONTRAST CLINICAL INFORMATION: Follow-up hypointense T1 bone marrow signal, bony calvarium COMPARISON: April 08, 2023. TECHNIQUE: Multiplanar, multisequence MRI of the brain was obtained before and after the intravenous administration of 8.5 mL gadolinium based (Gadavist) without reported immediate complications.. FINDINGS: No restricted diffusion. No acute intracranial hemorrhage, mass effect, midline shift, hydrocephalus or herniation. Davila-white matter differentiation is normal. Posterior cranial fossa contents demonstrated no signal abnormality or mass effect. No abnormal enhancement within the intra-axial or the extra-axial compartment of the cranium. Craniocervical junction is intact with normal position of the cerebellar tonsils. Sellar/suprasellar region is normal. Flow-void signal within the main cerebral vessels is normal. MR/MR head/brain wo/w con IMPRESSION: No acute or structural brain abnormality. No abnormal enhancement. Electronically signed by: Douglas Ashley MD 04/13/2025 06:51 AM DEON
== END 2025-04-12 16:06 | disposition home or self-care (01) ==
LOC: HO.MRI 16:05
PROVIDERS: PCP Internal Medicine; Visit Provider Nurse Practitioner Family
DX: D75.9 Disease of blood and blood-forming organs, unspecified (principal); R93.0 Abnormal findings on diagnostic imaging of skull and head, not elsewhere classified
CPT/HCPCS: 70553; A9585